=== PATIENT | male | born 1955 ===

== ENCOUNTER 2021-10-13 00:22 | Outpatient (CLI) | payer MEDICARE, SELFPAY ==
--- NOTE | 2021-10-13 13:45 | DI.MRI_ITS ---
Exam(s) MR CERVICAL SPINE WO EXAM: MR CERVICAL SPINE WO CLINICAL HISTORY: SPINAL STENOSIS CERVICAL REGION M48.02, SPINAL FUSION C5-C7, ACUTE CHRONIC TECHNIQUE: Multiplanar multisequence MRI of the cervical spine was performed without intravenous con trast. COMPARISON: MR MR BRAIN W/WO CONTRAST from 08/22/2012 MR MR BRAIN W/WO CONTRAST from 08/22/2012 FINDINGS: BONES: Vertebral body heights are maintained. Intervertebral disc spaces are normal. There is mild re versal of the normal cervical lordosis centered at C3-C4. Bone marrow signal intensity is within norm al limits. There is an anterior cervical fusion from C5 through C7. CERVICAL CORD: Craniovertebral junction is unremarkable. There is stable hyperintense signal seen on the T2 weighted images in the posterior aspect of the spinal cord extending from C5 through C6. SOFT TISSUES: There again seen left thyroid nodules. C2-3: No disc herniation or bulge is identified. No significant central spinal canal or neural forami nal stenosis. C3-4: Prominence of the osteophyte disc complex impinging upon the anterior aspect of the spinal cord . No significant central spinal canal stenosis is seen. There are uncovertebral joint hypertrophy, right greater than left. There is moderately right neural foraminal stenosis and [id number] le ft neural foraminal stenosis. C4-5: Mild prominence of the osteophyte disc complex in the left uncovertebral joint causing mild lef t neural foraminal stenosis. No significant central spinal canal stenosis. C5-6: There are hypertrophic changes of the uncovertebral joints bilaterally, left greater than right . There is moderate left neural foraminal stenosis. No significant central spinal canal stenosis. C6-7: Hypertrophic changes of the uncovertebral joints is seen on the left causing [id number] l eft neural foraminal stenosis. There is mild narrowing of the central spinal canal. C7-T1: No disc herniation or bulge is identified. No significant central spinal canal or neural fredo inal stenosis IMPRESSION: 1. Status post anterior cervical disc fusion from C5 through C7. 2. Multilevel degenerative changes in the cervical spine resulting in central spinal canal neural for aminal stenosis as described above. 3. Stable abnormal signal seen in the spinal cord. DATA REPOSITORY:
== END 2021-10-13 00:42 ==
LOC: DI 00:22
PROVIDERS: Visit Provider Internal Medicine
DX: M48.02 Spinal stenosis, cervical region (principal); Z98.890 Other specified postprocedural states
CPT/HCPCS: 72141